=== PATIENT | female | born 1965 | race Caucasian/White ===

== ENCOUNTER 2018-03-01 17:39 | Emergency (ER) | payer MEDICARE, OTHER ==
[~2018-03-01] VITALS: Ht 162.6 cm; Wt 79.0 kg
[2018-03-01] MEDS ORDERED: HYDROcodone/acetaminophen 10/325mg tab PO ONE (20:05)
[2018-03-01 20:15] VITALS: BP 122/78
[2018-03-01] MEDS ORDERED: DOCU100C41 PO (20:51)
[2018-03-01] MEDS ORDERED: HYDR-565 PO (20:51)
== END 2018-03-01 21:08 | disposition home or self-care (01) ==
LOC: ER 17:39
DX: S62.521A Displaced fracture of distal phalanx of right thumb, initial encounter for closed fracture (principal); Z88.5 Allergy status to narcotic agent; Z79.899 Other long term (current) drug therapy; W01.0XXA Fall on same level from slipping, tripping and stumbling without subsequent striking against object, initial encounter; Y93.51 Activity, roller skating (inline) and skateboarding; Y92.89 Other specified places as the place of occurrence of the external cause; Y99.8 Other external cause status
CPT/HCPCS: 29130; 72220; 73130; 99284

== ENCOUNTER 2018-03-03 08:23 | Emergency (ER) | payer MEDICARE, OTHER ==
[~2018-03-03] VITALS: Ht 162.6 cm; Wt 81.8 kg
[~2018-03-03 08:23] MED LIST: DOCU100C41 PO; HYDR-565 PO
[2018-03-03 08:30] VITALS: BP 130/75
[2018-03-03] MEDS ORDERED: HYDR-565 PO (09:52)
== END 2018-03-03 10:30 | disposition home or self-care (01) ==
LOC: ER 08:24
DX: S62.521A Displaced fracture of distal phalanx of right thumb, initial encounter for closed fracture (principal); S30.0XXA Contusion of lower back and pelvis, initial encounter; G89.29 Other chronic pain; Z88.5 Allergy status to narcotic agent; Z79.899 Other long term (current) drug therapy; W01.0XXA Fall on same level from slipping, tripping and stumbling without subsequent striking against object, initial encounter; Y93.89 Activity, other specified; Y92.89 Other specified places as the place of occurrence of the external cause; Y99.8 Other external cause status
CPT/HCPCS: 29125; 73100; 73130; 73502; 99284

== ENCOUNTER 2018-03-14 11:03 | Outpatient (CLI) | payer MEDICARE, OTHER ==
[2018-03-14 11:13] VITALS: BP 125/56
== END 2018-03-14 11:43 | disposition home or self-care (01) ==
LOC: ORTHO 11:03
PROVIDERS: ATTEND Nurse Practitioner Family
DX: S62.524A Nondisplaced fracture of distal phalanx of right thumb, initial encounter for closed fracture (principal); S62.619A Displaced fracture of proximal phalanx of unspecified finger, initial encounter for closed fracture; Z88.5 Allergy status to narcotic agent; X58.XXXA Exposure to other specified factors, initial encounter; Y93.89 Activity, other specified; Y92.89 Other specified places as the place of occurrence of the external cause; Y99.8 Other external cause status
CPT/HCPCS: 99213

== ENCOUNTER 2019-03-26 13:00 | Emergency (ER) | payer MEDICARE, MEDICAID ==
[~2019-03-26] VITALS: Ht 162.6 cm; Wt 77.3 kg
[~2019-03-26 13:00] MED LIST changes: -HYDR-565 PO
[2019-03-26 13:35] LABS: CLARITY,URINE CLEAR (Clear); COLOR,URINE YELLOW (Yellow); GLUCOSE, URINE NEGATIVE (Neg); KETONES,URINE NEGATIVE (Neg); LEUKOCYTE ESTERASE ,URINE NEGATIVE (Neg); NITRITES, URINE NEGATIVE (Neg); OCCULT BLOOD,URINE NEGATIVE (Neg); PH,URINE 5.5 (4.8-8.0); PROTEIN,URINE NEGATIVE (Neg); UROBILINOGEN,URINE 0.2 E.U/dL (0.2-1.0)
[2019-03-26 13:37] LABS: UA COLLECTION TYPE CLN CATCH MIDSTREAM
[2019-03-26 13:39] LABS: BASOPHILS # (AUTO) 0.1 X10'3 (0-0.2); BASOPHILS % (AUTO) 0.8 % (0-1); EOSINOPHILS # (AUTO) 0.2 X10'3 (0-0.9); EOSINOPHILS % (AUTO) 2.8 % (0-6); HEMATOCRIT 44.5 % (35.0-45.0); HEMOGLOBIN 14.7 g/dl (12.0-16.0); LYMPHOCYTES # (AUTO) 2.9 X10'3 (1.1-4.8); LYMPHOCYTES % (AUTO) 35.9 % (21-51); MEAN CORPUSCULAR HEMOGLOBIN 30.4 PG (27.0-31.0); MEAN CORPUSCULAR VOLUME 92.1 FL (78-98); MONOCYTES # (AUTO) 0.6 X10'3 (0-0.9); MONOCYTES % (AUTO) 6.8 % (2-12); NEUTROPHILS # (AUTO) 4.4 X10'3 (1.8-7.7); NEUTROPHILS % (AUTO) 53.7 % (42-75); PLATELET COUNT 197 X10'3 (140-440); RED BLOOD COUNT 4.83 X10'6 (4.20-5.60); RED CELL DISTRIBUTION WIDTH 13.1 % (11.5-14.5); WHITE BLOOD COUNT 8.2 X10'3 (4.5-11.0)
[2019-03-26] MEDS ORDERED: famotidine 20mg tablet PO ONE (13:45)
[2019-03-26] MEDS ORDERED: acetaminophen 325mg tablet PO ONE (13:45)
[2019-03-26] MEDS ORDERED: normal saline 1000ML IV soln IVB ONE (13:45)
[2019-03-26] MEDS ORDERED: pantoprazole 40 MG vial IV ONE ×2 (13:45)
[2019-03-26] MEDS ORDERED: ondansetron/PF 4mg/2ml inj IV ONE (13:45)
[2019-03-26] MEDS ORDERED: ESOMEPRAZOLE 40 MG VIAL IV ONE (13:50)
[2019-03-26 13:55] LABS: ALANINE AMINOTRANSFERASE 20 U/L (12-78); ALBUMIN 4.5 G/DL (3.4-5.0); ALBUMIN/GLOBULIN RATIO 1.4 (1.1-1.5); ALKALINE PHOSPHATASE 67 IU/L (46-116); ANION GAP 10 (8-16); ASPARTATE AMINO TRANSFERASE 7 U/L (10-37); BILIRUBIN,TOTAL 0.2 MG/DL (0.1-1.0); BLOOD UREA NITROGEN 10 MG/DL (7-18); BUN/CREATININE RATIO 13.9 (6.6-38.0); CHLORIDE 107 MMOL/L (99-107); CREATININE 0.72 MG/DL (0.40-0.90); GLUCOSE 93 MG/DL (70-104); POTASSIUM 3.8 MMOL/L (3.5-5.1); SODIUM 143 MMOL/L (135-145); TOTAL CARBON DIOXIDE 26.4 MMOL/L (24-32); TOTAL PROTEIN 7.8 G/DL (6.4-8.2); eGFR 85 ML/MIN
[2019-03-26 13:57] LABS: TROPONIN I < 0.04 NG/ML (0.0-0.05)
[2019-03-26 14:14] VITALS: BP 120/49
[2019-03-26] MEDS ORDERED: ONDA8TAB6 PO (14:19)
[2019-03-26] MEDS ORDERED: ACET-2615 PO (14:19)
[2019-03-26] MEDS ORDERED: PANT-47 PO (14:19)
[2019-03-26] MEDS ORDERED: LOPE2CAP PO (14:19)
== END 2019-03-26 14:51 | disposition home or self-care (01) ==
LOC: ER 13:01
DX: K52.9 Noninfective gastroenteritis and colitis, unspecified (principal); G89.29 Other chronic pain; Z98.890 Other specified postprocedural states; Z88.5 Allergy status to narcotic agent; Z79.899 Other long term (current) drug therapy
CPT/HCPCS: 36415; 80053; 81003; 84484; 85025; 85610; 96361; 96374; 96375; 99283; J2405; J7030

== ENCOUNTER 2019-09-03 14:41 | Emergency (ER) | payer MEDICARE, MEDICAID ==
[~2019-09-03] VITALS: Ht 162.6 cm; Wt 77.3 kg
[~2019-09-03 14:41] MED LIST changes: +LOPE2CAP PO; +ONDA8TAB6 PO; +PANT-47 PO
[2019-09-03 15:09] VITALS: BP 125/82
[2019-09-03] MEDS ORDERED: ORPH100T2 PO (16:29)
[2019-09-03] MEDS ORDERED: ketorolac tromethamine 15mg/ml inj. IM ONE (16:30)
== END 2019-09-03 17:01 | disposition home or self-care (01) ==
LOC: ER 14:41
DX: M54.5 Low back pain (principal); G89.29 Other chronic pain; Z88.5 Allergy status to narcotic agent; Z79.899 Other long term (current) drug therapy
CPT/HCPCS: 96372; 99283; J1885

== ENCOUNTER 2020-01-01 09:06 | Emergency (ER) | payer MEDICAID, MEDICARE ==
[~2020-01-01] VITALS: Ht 162.6 cm; Wt 77.0 kg
[~2020-01-01 09:06] MED LIST changes: +ORPH100T2 PO
[2020-01-01] MEDS ORDERED: BUPIVAcaine/PF 7.5mg/ml (0.75%) 10ml vial IJ ONE (09:30)
[2020-01-01] MEDS ORDERED: LIDO700A32 TOP (09:35)
--- NOTE | 2020-01-01 10:18 | NUR ---
received pain injection. Laying in position of comfort. Given a warm blanket.
[2020-01-01 10:31] VITALS: BP 141/94
--- NOTE | 2020-01-01 10:32 | NUR ---
Pt states pain is now 4/10. standing up and walking to bathroom.
== END 2020-01-01 11:52 | disposition home or self-care (01) ==
LOC: ER 09:07
DX: S39.012A Strain of muscle, fascia and tendon of lower back, initial encounter (principal); G89.29 Other chronic pain; Z98.890 Other specified postprocedural states; Z88.5 Allergy status to narcotic agent; Z79.899 Other long term (current) drug therapy; X58.XXXA Exposure to other specified factors, initial encounter; Y93.89 Activity, other specified; Y92.89 Other specified places as the place of occurrence of the external cause; Y99.8 Other external cause status
CPT/HCPCS: 20552; 99284

== ENCOUNTER 2020-01-21 13:21 | Emergency (ER) | payer MEDICARE, MEDICAID ==
[~2020-01-21] VITALS: Ht 162.6 cm; Wt 90.0 kg
[~2020-01-21 13:21] MED LIST changes: +LIDO700A32 TOP
[2020-01-21 13:25] VITALS: BP 120/67
[2020-01-21] MEDS ORDERED: ketorolac tromethamine 15mg/ml inj. IM ONE (14:25)
== END 2020-01-21 14:47 | disposition home or self-care (01) ==
LOC: ER 13:22
DX: M54.5 Low back pain (principal); G89.29 Other chronic pain; Z88.5 Allergy status to narcotic agent; Z79.899 Other long term (current) drug therapy
CPT/HCPCS: 96372; 99283; J1885

== ENCOUNTER 2020-05-11 03:57 | Emergency (ER) | payer MEDICARE, MEDICAID ==
[~2020-05-11] VITALS: Ht 165.1 cm; Wt 81.8 kg
[2020-05-11] MEDS ORDERED: LORazepam 2 mg/ml vial IV ONE (04:05)
[2020-05-11 04:25] LABS: BASOPHILS # (AUTO) 0.1 X10'3 (0-0.2); BASOPHILS % (AUTO) 0.5 % (0-1); EOSINOPHILS # (AUTO) 0.1 X10'3 (0-0.9); EOSINOPHILS % (AUTO) 0.9 % (0-6); HEMATOCRIT 37.6 % (35.0-45.0); HEMOGLOBIN 12.4 g/dl (12.0-16.0); LYMPHOCYTES # (AUTO) 1.6 X10'3 (1.1-4.8); LYMPHOCYTES % (AUTO) 12.8 % (21-51); MEAN CORPUSCULAR HEMOGLOBIN 30.5 PG (27.0-31.0); MEAN CORPUSCULAR HGB CONC 32.9 g/dL (33.0-36.5); MEAN CORPUSCULAR VOLUME 92.9 FL (78-98); MEAN PLATELET VOLUME 9.4 FL (7.4-10.4); MONOCYTES # (AUTO) 0.7 X10'3 (0-0.9); MONOCYTES % (AUTO) 5.2 % (2-12); NEUTROPHILS # (AUTO) 10.3 X10'3 (1.8-7.7); NEUTROPHILS % (AUTO) 80.6 % (42-75); PLATELET COUNT 206 X10'3 (140-440); RED BLOOD COUNT 4.05 X10'6 (4.20-5.60); RED CELL DISTRIBUTION WIDTH 14.8 % (11.5-14.5); WHITE BLOOD COUNT 12.8 X10'3 (4.5-11.0)
[2020-05-11 04:34] LABS: ALANINE AMINOTRANSFERASE 26 U/L (12-78); ALBUMIN 3.8 G/DL (3.4-5.0); ALBUMIN/GLOBULIN RATIO 1.4 (1.1-1.5); ALKALINE PHOSPHATASE 46 IU/L (46-116); ANION GAP 9 (8-16); ASPARTATE AMINO TRANSFERASE 8 U/L (10-37); BILIRUBIN,TOTAL 0.3 MG/DL (0.1-1.0); BLOOD UREA NITROGEN 19 MG/DL (7-18); BUN/CREATININE RATIO 19.2 (6.6-38.0); CALCIUM 8.5 MG/DL (8.5-10.1); CHLORIDE 103 MMOL/L (99-107); CREATININE 0.99 MG/DL (0.40-0.90); GLUCOSE 242 MG/DL (70-104); POTASSIUM 3.5 MMOL/L (3.5-5.1); SODIUM 137 MMOL/L (135-145); TOTAL CARBON DIOXIDE 24.9 MMOL/L (24-32); TOTAL PROTEIN 6.5 G/DL (6.4-8.2); eGFR 59 ML/MIN
[2020-05-11] MEDS ORDERED: LORA-269 PO (05:04)
[2020-05-11 05:19] VITALS: BP 101/64
== END 2020-05-11 05:20 | disposition home or self-care (01) ==
LOC: ER 03:57
DX: R07.89 Other chest pain (principal); F41.9 Anxiety disorder, unspecified; R42 Dizziness and giddiness; G89.29 Other chronic pain; R50.9 Fever, unspecified; R06.02 Shortness of breath; Z88.5 Allergy status to narcotic agent; Z79.899 Other long term (current) drug therapy
CPT/HCPCS: 36415; 71045; 80053; 83880; 84484; 85025; 93005; 96374; 99285; J2060

== ENCOUNTER 2020-11-10 03:16 | Inpatient (IN) | payer MEDICARE, MEDICAID ==
[~2020-11-10] VITALS: Ht 162.6 cm; Wt 75.0 kg
[~2020-11-10 03:16] MED LIST changes: +LORA-269 PO
[2020-11-10] MEDS ORDERED: normal saline 1000ml 1,000 ML IV ONE (03:45)
[2020-11-10] MEDS ORDERED: aspirin 81mg tab.chew PO ONE (03:45)
[2020-11-10] MEDS ORDERED: ondansetron/PF 4mg/2ml inj IV ONE (03:45)
[2020-11-10 03:53] LABS: BASOPHILS # (AUTO) 0.1 X10'3 (0-0.2); BASOPHILS % (AUTO) 0.7 % (0-1); EOSINOPHILS # (AUTO) 0.2 X10'3 (0-0.9); EOSINOPHILS % (AUTO) 2.2 % (0-6); HEMATOCRIT 45.8 % (35.0-45.0); HEMOGLOBIN 15.4 g/dl (12.0-16.0); MEAN CORPUSCULAR HEMOGLOBIN 30.4 PG (27.0-31.0); MEAN CORPUSCULAR HGB CONC 33.6 g/dL (33.0-36.5); MEAN CORPUSCULAR VOLUME 90.5 FL (78-98); MEAN PLATELET VOLUME 10.3 FL (7.4-10.4); MONOCYTES % (AUTO) 11.1 % (2-12); PLATELET COUNT 242 X10'3 (140-440); RED BLOOD COUNT 5.06 X10'6 (4.20-5.60); RED CELL DISTRIBUTION WIDTH 13.2 % (11.5-14.5); WHITE BLOOD COUNT 9.3 X10'3 (4.5-11.0)
[2020-11-10 04:06] LABS: ALANINE AMINOTRANSFERASE 26 U/L (12-78); ALBUMIN 4.2 G/DL (3.4-5.0); ALBUMIN/GLOBULIN RATIO 1.3 (1.1-1.5); ALKALINE PHOSPHATASE 80 IU/L (46-116); ANION GAP 14 (8-16); ASPARTATE AMINO TRANSFERASE 15 U/L (10-37); BILIRUBIN,TOTAL 0.4 MG/DL (0.1-1.0); BLOOD UREA NITROGEN 8 MG/DL (7-18); BUN/CREATININE RATIO 9.5 (6.6-38.0); CALCIUM 9.2 MG/DL (8.5-10.1); CHLORIDE 100 MMOL/L (99-107); CREATININE 0.84 MG/DL (0.40-0.90); GLUCOSE 179 MG/DL (70-104); SODIUM 143 MMOL/L (135-145); TOTAL CARBON DIOXIDE 28.6 MMOL/L (24-32); TOTAL PROTEIN 7.4 G/DL (6.4-8.2); eGFR 71 ML/MIN
[2020-11-10 04:11] LABS: POTASSIUM 1.9 MMOL/L (3.5-5.1)
[2020-11-10] MEDS ORDERED: magnesium 2GM in 50ml NS 50 ML IV ONE (04:20)
[2020-11-10 04:28] LABS: MAGNESIUM 1.7 MG/DL (1.5-2.4)
[2020-11-10] MEDS ORDERED: potassium Cl 20 mEq SR tablet PO STA (04:33)
[2020-11-10] MEDS: potassium Cl 10 mEq/100mL bag IV SCH ×5 (04:36→08:20)
[2020-11-10] MEDS ORDERED: CYCL5TAB PO (04:42)
[2020-11-10] MEDS ORDERED: METO-395 PO (04:42)
[2020-11-10] MEDS ORDERED: DULO60CA65 PO (04:42)
[2020-11-10] MEDS ORDERED: ATOR10TA70 PO (04:42)
[2020-11-10] MEDS ORDERED: HYDR25TA4 PO (04:42)
[2020-11-10] MEDS ORDERED: PREG150C46 PO (04:42)
[2020-11-10] MEDS ORDERED: potassium Cl 20 mEq SR tablet PO PRN (05:00)
[2020-11-10] MEDS ORDERED: potassium Cl 40MEQ/1/2NS 520ml 520 ML IV PRN ×2 (05:00)
[2020-11-10] MEDS ORDERED: ondansetron/PF 4mg/2ml inj IV PRN (05:00)
[2020-11-10] MEDS ORDERED: acetaminophen 325mg tablet PO PRN (05:00)
[2020-11-10] MEDS ORDERED: magnesium hydroxide 30ml (MOM) UD suspension PO PRN (05:00)
[2020-11-10] MEDS ORDERED: mag hydrox/Alum hydrox/simeth 30ml oral suspension PO PRN (05:00)
[2020-11-10] MEDS ORDERED: METH-604 PO (05:04)
[2020-11-10] MEDS: pregabalin 75mg capsule PO SCH ×2 (08:06→19:28)
[2020-11-10] MEDS: heparin, porcine 5000 units/ml vial SQ SCH ×2 (08:06→19:30)
[2020-11-10] MEDS: atorvastatin 10mg tablet PO SCH (08:07)
[2020-11-10] MEDS: cyclobenzaprine 10mg tablet PO SCH ×3 (08:07→20:43)
[2020-11-10] MEDS: metoprolol succinate 25mg (24-HOUR) SR. Tablet PO SCH (08:07)
[2020-11-10] MEDS: K and/or MAG REPLACEMENT MC SCH ×2 (08:08→19:23)
[2020-11-10] MEDS: duloxetine 30mg CAPSULE.DR PO SCH (08:08)
[2020-11-10] MEDS: methimazole 5mg tablet PO SCH (08:10)
[2020-11-10 09:18] LABS: BASOPHILS # (AUTO) 0.1 X10'3 (0-0.2); BASOPHILS % (AUTO) 0.6 % (0-1); EOSINOPHILS # (AUTO) 0.1 X10'3 (0-0.9); EOSINOPHILS % (AUTO) 0.9 % (0-6); HEMATOCRIT 40.7 % (35.0-45.0); HEMOGLOBIN 13.7 g/dl (12.0-16.0); LYMPHOCYTES # (AUTO) 2.5 X10'3 (1.1-4.8); LYMPHOCYTES % (AUTO) 26.3 % (21-51); MEAN CORPUSCULAR HEMOGLOBIN 30.4 PG (27.0-31.0); MEAN CORPUSCULAR HGB CONC 33.8 g/dL (33.0-36.5); MEAN PLATELET VOLUME 9.9 FL (7.4-10.4); MONOCYTES # (AUTO) 0.7 X10'3 (0-0.9); MONOCYTES % (AUTO) 7.7 % (2-12); NEUTROPHILS # (AUTO) 6.1 X10'3 (1.8-7.7); NEUTROPHILS % (AUTO) 64.5 % (42-75); PLATELET COUNT 225 X10'3 (140-440); RED BLOOD COUNT 4.52 X10'6 (4.20-5.60); RED CELL DISTRIBUTION WIDTH 12.8 % (11.5-14.5); WHITE BLOOD COUNT 9.4 X10'3 (4.5-11.0)
[2020-11-10 09:33] LABS: ALANINE AMINOTRANSFERASE 20 U/L (12-78); ALBUMIN 3.5 G/DL (3.4-5.0); ALBUMIN/GLOBULIN RATIO 1.2 (1.1-1.5); ALKALINE PHOSPHATASE 66 IU/L (46-116); ANION GAP 7 (8-16); ASPARTATE AMINO TRANSFERASE 14 U/L (10-37); BILIRUBIN,TOTAL 0.3 MG/DL (0.1-1.0); BLOOD UREA NITROGEN 6 MG/DL (7-18); BUN/CREATININE RATIO 8.1 (6.6-38.0); CALCIUM 8.5 MG/DL (8.5-10.1); CHLORIDE 105 MMOL/L (99-107); CREATININE 0.74 MG/DL (0.40-0.90); GLUCOSE 159 MG/DL (70-104); SODIUM 142 MMOL/L (135-145); TOTAL CARBON DIOXIDE 30.1 MMOL/L (24-32); TOTAL PROTEIN 6.4 G/DL (6.4-8.2); eGFR 82 ML/MIN
[2020-11-10 10:15] VITALS: BP 129/74
--- NOTE | 2020-11-10 10:15 | NUR ---
Patient oriented to room and call light, vitals stable, patient resting comfortably. A&O x4 appropriate
[2020-11-10 12:19] LABS: MAGNESIUM 2.4 MG/DL (1.5-2.4)
[2020-11-10] MEDS: potassium Cl 20 mEq SR tablet PO PRN ×2 (14:36→19:30)
[2020-11-10] MEDS: potassium Cl 20mEq in D5-NS 1,000 ML IV SCH ×2 (14:37→15:05)
[2020-11-10 15:00] VITALS: BP 106/63
[2020-11-10 17:51] VITALS: BP 106/63
[2020-11-10 18:00] VITALS: BP 114/71
--- NOTE | 2020-11-10 18:39 | NUR ---
Problems reprioritized. Patient report given, questions answered & plan of care reviewed with Jeannette CAMACHO.
--- NOTE | 2020-11-10 18:40 | NUR ---
Patient in room PCU 3024. I have received report from Davi CAMACHO and had the opportunity to ask questions and assume patient care.
[2020-11-10 18:57] LABS: COLOR,URINE YELLOW (Yellow); GLUCOSE, URINE NEGATIVE (Neg); KETONES,URINE NEGATIVE (Neg); LEUKOCYTE ESTERASE ,URINE SMALL (Neg); NITRITES, URINE NEGATIVE (Neg); OCCULT BLOOD,URINE NEGATIVE (Neg); PH,URINE 6.5 (4.8-8.0); PROTEIN,URINE NEGATIVE (Neg); UROBILINOGEN,URINE 0.2 E.U/dL (0.2-1.0)
[2020-11-10 19:00] VITALS: BP 114/71
[2020-11-10 19:10] LABS: UA COLLECTION TYPE CLN CATCH MIDSTREAM
[2020-11-10 19:11] LABS: CLARITY,URINE SLIGHTLY CLOUDY (Clear); RBC,URINE NONE SEEN /HPF (0-2)
[2020-11-10 19:12] LABS: BACTERIA,URINE FEW /HPF (Neg); SQUAMOUS EPITHELIAL CELL,UR FEW /LPF (FEW)
[2020-11-10 22:00] VITALS: BP 96/65
[2020-11-11] MEDS: potassium Cl 20mEq in D5-NS 1,000 ML IV SCH ×3 (00:38→21:10)
[2020-11-11] MEDS: potassium Cl 20 mEq SR tablet PO PRN (00:38)
[2020-11-11 02:00] VITALS: BP 97/52
[2020-11-11 06:00] VITALS: BP 92/58
[2020-11-11 06:16] LABS: HEMATOCRIT 35.8 % (35.0-45.0); MEAN CORPUSCULAR HEMOGLOBIN 30.8 PG (27.0-31.0); MEAN CORPUSCULAR HGB CONC 33.5 g/dL (33.0-36.5); MEAN CORPUSCULAR VOLUME 91.8 FL (78-98); MEAN PLATELET VOLUME 10.1 FL (7.4-10.4); PLATELET COUNT 183 X10'3 (140-440); RED CELL DISTRIBUTION WIDTH 13.4 % (11.5-14.5); WHITE BLOOD COUNT 5.6 X10'3 (4.5-11.0)
[2020-11-11 06:22] LABS: ALANINE AMINOTRANSFERASE 20 U/L (12-78); ALBUMIN/GLOBULIN RATIO 1.2 (1.1-1.5); ALKALINE PHOSPHATASE 51 IU/L (46-116); ANION GAP 5 (8-16); ASPARTATE AMINO TRANSFERASE 15 U/L (10-37); BILIRUBIN,TOTAL 0.2 MG/DL (0.1-1.0); BLOOD UREA NITROGEN 10 MG/DL (7-18); BUN/CREATININE RATIO 16.1 (6.6-38.0); CALCIUM 8.3 MG/DL (8.5-10.1); CHLORIDE 112 MMOL/L (99-107); CREATININE 0.62 MG/DL (0.40-0.90); GLUCOSE 109 MG/DL (70-104); POTASSIUM 4.8 MMOL/L (3.5-5.1); SODIUM 144 MMOL/L (135-145); TOTAL CARBON DIOXIDE 26.9 MMOL/L (24-32); TOTAL PROTEIN 5.5 G/DL (6.4-8.2); eGFR > 90 ML/MIN
--- NOTE | 2020-11-11 06:39 | NUR ---
Problems reprioritized. Patient report given, questions answered & plan of care reviewed with Claire CAMACHO.
[2020-11-11 06:51] LABS: LARGE PLATELETS FEW; PLATELET ESTIMATE NORMAL; TOTAL CELLS COUNTED 100
[2020-11-11] MEDS: duloxetine 30mg CAPSULE.DR PO SCH (07:05)
[2020-11-11] MEDS: methimazole 5mg tablet PO SCH (07:06)
[2020-11-11] MEDS: atorvastatin 10mg tablet PO SCH (07:06)
[2020-11-11] MEDS: heparin, porcine 5000 units/ml vial SQ SCH ×2 (07:07→21:05)
[2020-11-11] MEDS: pregabalin 75mg capsule PO SCH ×2 (07:07→21:05)
[2020-11-11] MEDS: K and/or MAG REPLACEMENT MC SCH ×2 (07:11→20:00)
[2020-11-11] MEDS: metoprolol succinate 25mg (24-HOUR) SR. Tablet PO SCH ×2 (08:00→20:00)
[2020-11-11] MEDS ORDERED: acetaminophen 325mg tablet PO PRN (09:45)
[2020-11-11] MEDS: cyclobenzaprine 10mg tablet PO SCH ×2 (09:58→21:07)
[2020-11-11] MEDS ORDERED: metoprolol succinate 25mg (24-HOUR) SR. Tablet PO ONE (10:20)
[2020-11-11 11:00] VITALS: BP 108/68
--- NOTE | 2020-11-11 16:43 | NUR ---
Problems reprioritized. Patient report given, questions answered & plan of care reviewed with Cherry CAMACHO.
--- NOTE | 2020-11-11 16:54 | NUR ---
Patient in room PCU 3024. I have received report from JANICE Rangel and had the opportunity to ask questions and assume patient care.
[2020-11-11 18:00] VITALS: BP 101/63
--- NOTE | 2020-11-11 18:26 | NUR ---
Problems reprioritized. Patient report given, questions answered & plan of care reviewed with JANICE Keenan.
[2020-11-12 02:00] VITALS: BP 95/62
[2020-11-12] MEDS: potassium Cl 20mEq in D5-NS 1,000 ML IV SCH ×2 (02:49→05:17)
--- NOTE | 2020-11-12 06:18 | NUR ---
Patient in room PCU 3024. I have received report from JANICE Keenan and had the opportunity to ask questions and assume patient care.
--- NOTE | 2020-11-12 06:21 | NUR ---
Report given to JANICE Carey.
[2020-11-12 06:26] LABS: BASOPHILS % (AUTO) 0.7 % (0-1); EOSINOPHILS # (AUTO) 0.2 X10'3 (0-0.9); HEMATOCRIT 33.8 % (35.0-45.0); HEMOGLOBIN 11.2 g/dl (12.0-16.0); LYMPHOCYTES # (AUTO) 2.8 X10'3 (1.1-4.8); LYMPHOCYTES % (AUTO) 45.6 % (21-51); MEAN CORPUSCULAR HEMOGLOBIN 30.5 PG (27.0-31.0); MEAN CORPUSCULAR HGB CONC 33.1 g/dL (33.0-36.5); MEAN CORPUSCULAR VOLUME 92.2 FL (78-98); MEAN PLATELET VOLUME 10.1 FL (7.4-10.4); MONOCYTES # (AUTO) 0.6 X10'3 (0-0.9); NEUTROPHILS # (AUTO) 2.6 X10'3 (1.8-7.7); NEUTROPHILS % (AUTO) 41.7 % (42-75); PLATELET COUNT 163 X10'3 (140-440); RED BLOOD COUNT 3.67 X10'6 (4.20-5.60); RED CELL DISTRIBUTION WIDTH 13.2 % (11.5-14.5); WHITE BLOOD COUNT 6.2 X10'3 (4.5-11.0)
[2020-11-12 06:46] LABS: ALANINE AMINOTRANSFERASE 25 U/L (12-78); ALBUMIN/GLOBULIN RATIO 1.3 (1.1-1.5); ALKALINE PHOSPHATASE 50 IU/L (46-116); ANION GAP 6 (8-16); ASPARTATE AMINO TRANSFERASE 15 U/L (10-37); BILIRUBIN,TOTAL 0.2 MG/DL (0.1-1.0); BLOOD UREA NITROGEN 10 MG/DL (7-18); BUN/CREATININE RATIO 16.7 (6.6-38.0); CALCIUM 8.2 MG/DL (8.5-10.1); CHLORIDE 112 MMOL/L (99-107); GLUCOSE 98 MG/DL (70-104); POTASSIUM 4.4 MMOL/L (3.5-5.1); SODIUM 145 MMOL/L (135-145); TOTAL CARBON DIOXIDE 26.6 MMOL/L (24-32); TOTAL PROTEIN 5.3 G/DL (6.4-8.2); eGFR > 90 ML/MIN
[2020-11-12] MEDS: pregabalin 75mg capsule PO SCH (07:30)
[2020-11-12] MEDS: duloxetine 30mg CAPSULE.DR PO SCH (07:30)
[2020-11-12] MEDS: heparin, porcine 5000 units/ml vial SQ SCH (07:30)
[2020-11-12] MEDS: atorvastatin 10mg tablet PO SCH (07:31)
[2020-11-12] MEDS: cyclobenzaprine 10mg tablet PO SCH (07:31)
[2020-11-12] MEDS: metoprolol succinate 25mg (24-HOUR) SR. Tablet PO SCH (07:31)
[2020-11-12] MEDS: K and/or MAG REPLACEMENT MC SCH (08:00)
--- NOTE | 2020-11-12 13:30 | NUR ---
Patient stable for discharge per provider orders. PIV removed intact and awake overnight monitor removed and returned, with leads, to telemetry office. All belongings gathered and sent home with patient. Patient ambulated to wheelchair and wheeled down to front entrance, where he entered his daughter's private vehicle and left, in stable condition. Patient was given thorough discharge instructions and the opportunity to ask questions. All questions answered with patient indicating that he understood. Addendum: 11/12/20 at 1334 by Cherry Dumont RN Above note incorrect in that this female patient left the facility in her mother's private vehicle. She understood all discharge instructions and indicated understanding.
--- NOTE | 2020-11-13 10:57 | NUR ---
CASE MANAGEMENT DISCHARGE FOLLOW UP: T/c to pt's listed number, received automated message "Call cannot be completed at this time. Please try again later." Will attempt to call pt again later this afternoon. Addendum: 11/13/20 at 1421 by Yohana Mcdaniel RN [id number] 2nd attempt t/c, same message. Unable to contact patient.
== END 2020-11-12 12:56 | disposition home or self-care (01) | DRG 641 ==
LOC: ER 03:16 → ED HOLD 04:57 → PCU 3S 10:11
PROVIDERS: ADMIT Internal Medicine; ATTEND Family Medicine
DX: E87.6 Hypokalemia (principal); G90.50 Complex regional pain syndrome I, unspecified; E83.42 Hypomagnesemia; E87.8 Other disorders of electrolyte and fluid balance, not elsewhere classified; E03.9 Hypothyroidism, unspecified; E05.90 Thyrotoxicosis, unspecified without thyrotoxic crisis or storm; Z88.8 Allergy status to other drugs, medicaments and biological substances; I10 Essential (primary) hypertension; E78.00 Pure hypercholesterolemia, unspecified; Z86.16 Personal history of COVID-19; R94.31 Abnormal electrocardiogram [ECG] [EKG]; M54.9 Dorsalgia, unspecified
CPT/HCPCS: 36415; 71045; 80053; 81001; 83735; 84439; 84443; 84484; 85007; 85025; 87081; 87088; 93005; 96374; 99285; G0378; J1644; J2405; J3475; J3480; J7030

== ENCOUNTER 2021-10-17 20:06 | Emergency (ER) | payer MEDICARE, MEDICAID ==
[~2021-10-17 20:06] MED LIST changes: +ATOR10TA70 PO; +CYCL5TAB PO; -DOCU100C41 PO; +DULO60CA65 PO; -LIDO700A32 TOP; -LOPE2CAP PO; -LORA-269 PO; +METO-395 PO; -ONDA8TAB6 PO; -ORPH100T2 PO; -PANT-47 PO; +PREG150C46 PO
== END 2021-10-17 23:00 | disposition left against medical advice (07) ==
LOC: ER 20:07
DX: R51.9 Headache, unspecified (principal); Z53.21 Procedure and treatment not carried out due to patient leaving prior to being seen by health care provider

== ENCOUNTER 2021-11-30 11:55 | Inpatient (IN) | payer MEDICARE, MEDICAID ==
[~2021-11-30] VITALS: Ht 162.6 cm; Wt 81.8 kg
[~2021-11-30 11:55] MED LIST changes: -ATOR10TA70 PO; +CIPR-202 PO; -CYCL5TAB PO; -DULO60CA65 PO; +LACT1CAP55 PO; -METO-395 PO; +PANT40TA54 PO; -PREG150C46 PO
[2021-11-30 12:58] LABS: BASOPHILS % (AUTO) 0.4 % (0-1); EOSINOPHILS # (AUTO) 0.1 X10'3 (0-0.9); EOSINOPHILS % (AUTO) 1.3 % (0-6); HEMATOCRIT 42.4 % (35.0-45.0); HEMOGLOBIN 14.2 g/dl (12.0-16.0); LYMPHOCYTES # (AUTO) 1.5 X10'3 (1.1-4.8); LYMPHOCYTES % (AUTO) 14.7 % (21-51); MEAN CORPUSCULAR HEMOGLOBIN 29.8 PG (27.0-31.0); MEAN CORPUSCULAR HGB CONC 33.4 g/dL (33.0-36.5); MEAN CORPUSCULAR VOLUME 89.2 FL (78-98); MEAN PLATELET VOLUME 10.3 FL (7.4-10.4); MONOCYTES % (AUTO) 9.8 % (2-12); NEUTROPHILS # (AUTO) 7.6 X10'3 (1.8-7.7); NEUTROPHILS % (AUTO) 73.8 % (42-75); PLATELET COUNT 215 X10'3 (140-440); RED BLOOD COUNT 4.75 X10'6 (4.20-5.60); WHITE BLOOD COUNT 10.2 X10'3 (4.5-11.0)
[2021-11-30 13:00] LABS: ALANINE AMINOTRANSFERASE 22 U/L (12-78); ALBUMIN 3.9 G/DL (3.4-5.0); ALBUMIN/GLOBULIN RATIO 1.2 (1.1-1.5); ALKALINE PHOSPHATASE 56 IU/L (46-116); ANION GAP 9 (8-16); ASPARTATE AMINO TRANSFERASE 14 U/L (10-37); BILIRUBIN,TOTAL 0.5 MG/DL (0.1-1.0); BLOOD UREA NITROGEN 6 MG/DL (7-18); BUN/CREATININE RATIO 8.5 (6.6-38.0); CALCIUM 8.7 MG/DL (8.5-10.1); CHLORIDE 107 MMOL/L (99-107); CREATININE 0.71 MG/DL (0.40-0.90); GLUCOSE 116 MG/DL (70-104); LIPASE 83 U/L (73-393); POTASSIUM 3.5 MMOL/L (3.5-5.1); SODIUM 140 MMOL/L (135-145); TOTAL CARBON DIOXIDE 24.1 MMOL/L (24-32); TOTAL PROTEIN 7.2 G/DL (6.4-8.2); eGFR 85 ML/MIN
[2021-11-30 13:10] LABS: CLARITY,URINE CLEAR (Clear); COLOR,URINE YELLOW (Yellow); GLUCOSE, URINE NEGATIVE (Neg); KETONES,URINE TRACE mg/dl (Neg); LEUKOCYTE ESTERASE ,URINE NEGATIVE (Neg); NITRITES, URINE NEGATIVE (Neg); OCCULT BLOOD,URINE TRACE-INTACT (Neg); PROTEIN,URINE NEGATIVE (Neg); UROBILINOGEN,URINE 0.2 E.U/dL (0.2-1.0)
[2021-11-30 13:11] LABS: URINE HCG NEGATIVE (NEG)
[2021-11-30 13:37] LABS: UA COLLECTION TYPE CLN CATCH MIDSTREAM
[2021-11-30 13:44] LABS: BACTERIA,URINE NONE SEEN /HPF (Neg); RBC,URINE 0-2 /HPF (0-2); SQUAMOUS EPITHELIAL CELL,UR FEW /LPF (FEW); WBC,URINE NONE SEEN /HPF (0-4)
[2021-11-30] MEDS ORDERED: normal saline 1000ML IV soln IVB ONE ×3 (13:55→14:25)
[2021-11-30] MEDS ORDERED: morphine 4 MG/ML inj SYRINge IV ONE ×2 (14:25→17:35)
[2021-11-30] MEDS ORDERED: metoclopramide 5 mg/ml inj IV ONE (14:25)
[2021-11-30] MEDS ORDERED: diphenhydrAMINE 50 mg/ml inj IV ONE (14:25)
[2021-11-30] MEDS ORDERED: piperacillin/tazo 3.375gm/50ml 50 ML IV ONE (16:10)
[2021-11-30] MEDS ORDERED: LACT1CAP55 PO (17:35)
[2021-11-30] MEDS ORDERED: PANT-47 PO (17:35)
[2021-11-30] MEDS ORDERED: PREG150C46 PO (17:35)
[2021-11-30] MEDS ORDERED: CYCL5TAB PO (17:35)
[2021-11-30] MEDS ORDERED: MULT-1085 PO (17:35)
[2021-11-30] MEDS ORDERED: acetaminophen 325mg tablet PO PRN ×2 (18:40)
[2021-11-30] MEDS ORDERED: diphenhydrAMINE 25mg capsule PO PRN (18:40)
[2021-11-30] MEDS ORDERED: magnesium 2GM in 50ml NS 50 ML IV PRN (18:40)
[2021-11-30] MEDS ORDERED: HYDROcodone/acetaminophen 5mg/325mg tablet PO PRN (18:40)
[2021-11-30] MEDS ORDERED: potassium Cl 20 mEq SR tablet PO PRN ×2 (18:40)
[2021-11-30] MEDS ORDERED: magnesium hydroxide 30ml (MOM) UD suspension PO PRN (18:40)
[2021-11-30] MEDS ORDERED: mag hydrox/Alum hydrox/simeth 30ml oral suspension PO PRN (18:40)
[2021-11-30] MEDS ORDERED: magnesium Cl slow-release 64mg tablet PO PRN (18:40)
[2021-11-30] MEDS ORDERED: potassium CL 10mEq/100ml bag 100 ML IV PRN (18:40)
[2021-11-30] MEDS ORDERED: magnesium 4gm in 100ml NS 100 ML IV PRN (18:40)
[2021-11-30] MEDS ORDERED: morphine 2 MG/ML inj. syringe IV PRN (18:40)
[2021-11-30] MEDS: normal saline 1000ml 1,000 ML IV SCH (18:52)
[2021-11-30] MEDS: K and/or MAG REPLACEMENT MC SCH (19:49)
[2021-11-30] MEDS: docusate sod 100mg capsule PO SCH (20:00)
[2021-11-30] MEDS: heparin, porcine 5000 units/ml vial SQ SCH (20:06)
--- NOTE | 2021-11-30 20:40 | NUR ---
Received report from Eric CAMACHO in the ER. Pt arrived on the unit via wheelchair and was able to ambulate with minimal assistance to her hospital bed. Pt was on room air, saline locked, VSS and still in her personal clothing. Pt had no signs of distress, will continue to monitor.
[2021-11-30] MEDS: cyclobenzaprine 10mg tablet PO SCH (20:41)
[2021-11-30] MEDS: pregabalin 75mg capsule PO SCH (20:42)
[2021-11-30] MEDS: morphine 2 MG/ML inj. syringe IV PRN (21:22)
[2021-11-30 21:40] VITALS: BP 152/89
[2021-11-30 23:31] VITALS: BP 113/61
[2021-11-30] MEDS: piperacillin/tazo 3.375gm/50ml 50 ML IV SCH (23:58)
[2021-12-01] MEDS: morphine 2 MG/ML inj. syringe IV PRN ×5 (03:03→23:51)
[2021-12-01] MEDS: normal saline 1000ml 1,000 ML IV SCH ×3 (04:40→14:17)
[2021-12-01] MEDS: HYDROcodone/acetaminophen 10/325mg tab PO PRN ×2 (05:38→09:57)
[2021-12-01 06:08] LABS: BASOPHILS % (AUTO) 0.7 % (0-1); EOSINOPHILS # (AUTO) 0.3 X10'3 (0-0.9); EOSINOPHILS % (AUTO) 5.5 % (0-6); HEMOGLOBIN 11.7 g/dl (12.0-16.0); LYMPHOCYTES # (AUTO) 1.7 X10'3 (1.1-4.8); LYMPHOCYTES % (AUTO) 32.5 % (21-51); MEAN CORPUSCULAR HEMOGLOBIN 30.5 PG (27.0-31.0); MEAN CORPUSCULAR HGB CONC 33.5 g/dL (33.0-36.5); MEAN CORPUSCULAR VOLUME 91.1 FL (78-98); MONOCYTES # (AUTO) 0.6 X10'3 (0-0.9); MONOCYTES % (AUTO) 11.8 % (2-12); NEUTROPHILS # (AUTO) 2.6 X10'3 (1.8-7.7); NEUTROPHILS % (AUTO) 49.5 % (42-75); PLATELET COUNT 175 X10'3 (140-440); RED BLOOD COUNT 3.84 X10'6 (4.20-5.60); RED CELL DISTRIBUTION WIDTH 12.9 % (11.5-14.5); WHITE BLOOD COUNT 5.2 X10'3 (4.5-11.0)
[2021-12-01 06:26] LABS: ALANINE AMINOTRANSFERASE 19 U/L (12-78); ALBUMIN 2.9 G/DL (3.4-5.0); ALBUMIN/GLOBULIN RATIO 1.1 (1.1-1.5); ALKALINE PHOSPHATASE 39 IU/L (46-116); ANION GAP 10 (8-16); ASPARTATE AMINO TRANSFERASE 11 U/L (10-37); BILIRUBIN,TOTAL 0.4 MG/DL (0.1-1.0); BLOOD UREA NITROGEN 4 MG/DL (7-18); BUN/CREATININE RATIO 7.1 (6.6-38.0); CHLORIDE 109 MMOL/L (99-107); CREATININE 0.56 MG/DL (0.40-0.90); GLUCOSE 89 MG/DL (70-104); PHOSPHORUS 2.8 MG/DL (2.3-4.5); POTASSIUM 3.5 MMOL/L (3.5-5.1); SODIUM 142 MMOL/L (135-145); TOTAL CARBON DIOXIDE 23.4 MMOL/L (24-32); TOTAL PROTEIN 5.6 G/DL (6.4-8.2); eGFR > 90 ML/MIN
--- NOTE | 2021-12-01 06:35 | NUR ---
Problems reprioritized. Patient report given, questions answered & plan of care reviewed with Sandeep CAMACHO.
--- NOTE | 2021-12-01 06:37 | NUR ---
Patient in room [facility] 351. I have received report from Nydia CAMACHO and had the opportunity to ask questions and assume patient care.
[2021-12-01 07:00] VITALS: BP 104/66
[2021-12-01] MEDS: docusate sod 100mg capsule PO SCH ×2 (08:00→20:00)
[2021-12-01] MEDS: K and/or MAG REPLACEMENT MC SCH ×2 (08:00→20:00)
[2021-12-01] MEDS: ondansetron/PF 4mg/2ml inj IV PRN ×2 (09:47→23:59)
[2021-12-01] MEDS: piperacillin/tazo 3.375gm/50ml 50 ML IV SCH ×3 (09:47→23:52)
[2021-12-01] MEDS: pantoprazole 40mg Tablet.DR PO SCH (09:53)
[2021-12-01] MEDS: multivitamins, therapeutics tablet PO SCH (09:53)
[2021-12-01] MEDS: cyclobenzaprine 10mg tablet PO SCH ×3 (09:53→20:16)
[2021-12-01] MEDS: lactobacillus rhamnosus 10,000 MMU CELLS/CAPSULE PO SCH (09:53)
[2021-12-01] MEDS: heparin, porcine 5000 units/ml vial SQ SCH (09:54)
[2021-12-01] MEDS: pregabalin 75mg capsule PO SCH ×3 (09:57→20:19)
[2021-12-01 11:32] LABS: OCCULT BLOOD STOOL POSITIVE (Neg)
[2021-12-01 11:40] LABS: C DIFF SPECIMEN=DIARRHEA? ACCEPTABLE; C DIFFICILE TOXINS A&B NEGATIVE (Neg)
[2021-12-01 12:00] VITALS: BP 104/76
[2021-12-01] MEDS ORDERED: PEG 3350/Na sulf,bicarb,Cl/KCl oral sol 4 liter bottle PO ONE (18:50)
[2021-12-01 19:53] VITALS: BP 154/92
[2021-12-02] VITALS (9 sets, daily range): BP systolic 111–139; BP diastolic 66–93
[2021-12-02] MEDS: normal saline 1000ml 1,000 ML IV SCH ×3 (00:26→23:12)
[2021-12-02] MEDS: morphine 2 MG/ML inj. syringe IV PRN ×3 (05:33→20:05)
--- NOTE | 2021-12-02 06:06 | NUR ---
Problems reprioritized. Patient report given, questions answered & plan of care reviewed with Sandeep CAMACHO.
[2021-12-02 06:07] LABS: BASOPHILS % (AUTO) 0.8 % (0-1); EOSINOPHILS # (AUTO) 0.3 X10'3 (0-0.9); EOSINOPHILS % (AUTO) 4.9 % (0-6); HEMATOCRIT 35.5 % (35.0-45.0); HEMOGLOBIN 11.8 g/dl (12.0-16.0); LYMPHOCYTES # (AUTO) 2.2 X10'3 (1.1-4.8); LYMPHOCYTES % (AUTO) 41.9 % (21-51); MEAN CORPUSCULAR HEMOGLOBIN 30.4 PG (27.0-31.0); MEAN CORPUSCULAR HGB CONC 33.3 g/dL (33.0-36.5); MEAN CORPUSCULAR VOLUME 91.1 FL (78-98); MEAN PLATELET VOLUME 9.8 FL (7.4-10.4); MONOCYTES # (AUTO) 0.5 X10'3 (0-0.9); MONOCYTES % (AUTO) 9.3 % (2-12); NEUTROPHILS # (AUTO) 2.3 X10'3 (1.8-7.7); NEUTROPHILS % (AUTO) 43.1 % (42-75); PLATELET COUNT 194 X10'3 (140-440); RED CELL DISTRIBUTION WIDTH 12.5 % (11.5-14.5); WHITE BLOOD COUNT 5.3 X10'3 (4.5-11.0)
[2021-12-02 06:29] LABS: ALANINE AMINOTRANSFERASE 22 U/L (12-78); ALBUMIN 3.1 G/DL (3.4-5.0); ALKALINE PHOSPHATASE 41 IU/L (46-116); ANION GAP 10 (8-16); BILIRUBIN,TOTAL 0.3 MG/DL (0.1-1.0); BLOOD UREA NITROGEN 5 MG/DL (7-18); BUN/CREATININE RATIO 7.7 (6.6-38.0); CHLORIDE 107 MMOL/L (99-107); CREATININE 0.65 MG/DL (0.40-0.90); GLUCOSE 97 MG/DL (70-104); SODIUM 143 MMOL/L (135-145); TOTAL CARBON DIOXIDE 25.8 MMOL/L (24-32); TOTAL PROTEIN 6.1 G/DL (6.4-8.2); eGFR > 90 ML/MIN
[2021-12-02 06:43] LABS: ASPARTATE AMINO TRANSFERASE 21 U/L (10-37); PHOSPHORUS 3.2 MG/DL (2.3-4.5); POTASSIUM 3.9 MMOL/L (3.5-5.1)
[2021-12-02] MEDS: piperacillin/tazo 3.375gm/50ml 50 ML IV SCH ×2 (07:53→18:00)
[2021-12-02] MEDS: cyclobenzaprine 10mg tablet PO SCH ×3 (07:54→20:20)
[2021-12-02] MEDS: multivitamins, therapeutics tablet PO SCH (07:54)
[2021-12-02] MEDS: lactobacillus rhamnosus 10,000 MMU CELLS/CAPSULE PO SCH (07:54)
[2021-12-02] MEDS: pantoprazole 40mg Tablet.DR PO SCH (07:54)
[2021-12-02] MEDS: pregabalin 75mg capsule PO SCH ×3 (07:55→20:20)
[2021-12-02] MEDS: HYDROcodone/acetaminophen 10/325mg tab PO PRN ×4 (07:55→23:07)
[2021-12-02] MEDS: docusate sod 100mg capsule PO SCH ×2 (08:00→20:00)
[2021-12-02] MEDS: K and/or MAG REPLACEMENT MC SCH ×2 (08:00→19:57)
[2021-12-02] MEDS: ondansetron/PF 4mg/2ml inj IV PRN ×2 (10:10→15:42)
[2021-12-02] MEDS ORDERED: MIDAZolam 1 MG/ML 5ML VIAL ONE (15:11)
[2021-12-02] MEDS ORDERED: fentaNYL/PF 50MCG/1 ML 2ML syringe ONE (15:11)
[2021-12-02] MEDS ORDERED: ondansetron/PF 4mg/2ml inj ONE (15:41)
--- NOTE | 2021-12-02 16:13 | NUR ---
Patient not in her room, she was still in GI lab for colonoscopy
[2021-12-02] MEDS ORDERED: hyoscyamine 0.125mg TAB.SUBL SL PRN (17:15)
--- NOTE | 2021-12-02 18:30 | NUR ---
Patient in room [facility] 351. I have received report from JANICE Hopkins and had the opportunity to ask questions and assume patient care. Addendum: 12/02/21 at 2038 by Zeke Glez RN Amended: Links added.
--- NOTE | 2021-12-02 23:15 | NUR ---
natalieco given for pain Addendum: 12/02/21 at 2316 by Zeke Glez RN Amended: Links added.
[2021-12-03] VITALS: BP 118/76
[2021-12-03] MEDS: morphine 2 MG/ML inj. syringe IV PRN (04:42)
[2021-12-03] MEDS: ondansetron/PF 4mg/2ml inj IV PRN (04:44)
[2021-12-03 06:02] LABS: BASOPHILS % (AUTO) 0.9 % (0-1); EOSINOPHILS # (AUTO) 0.2 X10'3 (0-0.9); EOSINOPHILS % (AUTO) 3.8 % (0-6); HEMATOCRIT 34.5 % (35.0-45.0); HEMOGLOBIN 11.6 g/dl (12.0-16.0); LYMPHOCYTES # (AUTO) 1.4 X10'3 (1.1-4.8); LYMPHOCYTES % (AUTO) 28.5 % (21-51); MEAN CORPUSCULAR HEMOGLOBIN 30.5 PG (27.0-31.0); MEAN CORPUSCULAR HGB CONC 33.6 g/dL (33.0-36.5); MEAN CORPUSCULAR VOLUME 90.8 FL (78-98); MEAN PLATELET VOLUME 9.1 FL (7.4-10.4); MONOCYTES # (AUTO) 0.5 X10'3 (0-0.9); MONOCYTES % (AUTO) 9.3 % (2-12); NEUTROPHILS # (AUTO) 2.8 X10'3 (1.8-7.7); NEUTROPHILS % (AUTO) 57.5 % (42-75); PLATELET COUNT 185 X10'3 (140-440); RED CELL DISTRIBUTION WIDTH 12.7 % (11.5-14.5); WHITE BLOOD COUNT 4.9 X10'3 (4.5-11.0)
[2021-12-03 06:15] LABS: ALANINE AMINOTRANSFERASE 23 U/L (12-78); ALBUMIN 3.1 G/DL (3.4-5.0); ALBUMIN/GLOBULIN RATIO 1.1 (1.1-1.5); ALKALINE PHOSPHATASE 38 IU/L (46-116); ANION GAP 8 (8-16); ASPARTATE AMINO TRANSFERASE 15 U/L (10-37); BILIRUBIN,TOTAL 0.2 MG/DL (0.1-1.0); BLOOD UREA NITROGEN 4 MG/DL (7-18); BUN/CREATININE RATIO 5.5 (6.6-38.0); CALCIUM 7.7 MG/DL (8.5-10.1); CHLORIDE 106 MMOL/L (99-107); CREATININE 0.73 MG/DL (0.40-0.90); GLUCOSE 91 MG/DL (70-104); PHOSPHORUS 3.8 MG/DL (2.3-4.5); POTASSIUM 3.7 MMOL/L (3.5-5.1); SODIUM 142 MMOL/L (135-145); TOTAL CARBON DIOXIDE 27.8 MMOL/L (24-32); TOTAL PROTEIN 5.8 G/DL (6.4-8.2); eGFR 83 ML/MIN
--- NOTE | 2021-12-03 06:30 | NUR ---
Problems reprioritized. Patient report given, questions answered & plan of care reviewed with JANICE Tinajero. Addendum: 12/03/21 at 0630 by Zeke Glez RN Amended: Links added.
[2021-12-03 07:10] VITALS: BP 118/75
[2021-12-03] MEDS: pantoprazole 40mg Tablet.DR PO SCH (08:00)
[2021-12-03] MEDS: cyclobenzaprine 10mg tablet PO SCH (08:00)
[2021-12-03] MEDS: multivitamins, therapeutics tablet PO SCH (08:00)
[2021-12-03] MEDS: K and/or MAG REPLACEMENT MC SCH (08:00)
[2021-12-03] MEDS: pregabalin 75mg capsule PO SCH (08:00)
[2021-12-03] MEDS: docusate sod 100mg capsule PO SCH (08:00)
[2021-12-03] MEDS: lactobacillus rhamnosus 10,000 MMU CELLS/CAPSULE PO SCH (08:00)
[2021-12-03] MEDS: normal saline 1000ml 1,000 ML IV SCH (09:13)
--- NOTE | 2021-12-03 09:37 | NUR ---
PAGER ID: [phone] MESSAGE: [phone] Son Salgado: patient c/o nausea and vomiting. Zofran was not effective. thank you! cosme [phone]
[2021-12-03] MEDS ORDERED: metoclopramide 5 mg/ml inj IV ONE (09:40)
[2021-12-03 12:24] VITALS: BP 125/75
[2021-12-03] MEDS ORDERED: METR-159 PO (12:46)
[2021-12-03] MEDS ORDERED: CIPR-202 PO (12:46)
[2021-12-03] MEDS ORDERED: HYDR-3965 PO (12:46)
[2021-12-03] MEDS ORDERED: SENN-223 PO (12:46)
[2021-12-03] MEDS ORDERED: ONDA4TAB12 PO (13:16)
--- NOTE | 2021-12-03 13:42 | NUR ---
patient stable and appropriate for discharge home with her mother. iv removed, all belongings taken from room. new rx e-scripted to preferred pharmacy. all discharge instructions and education given and reviewed with patient, all questions answered.
== END 2021-12-03 13:25 | disposition home or self-care (01) | DRG 392 ==
LOC: ER 11:55 → ED HOLD 18:44 → SUR 3N 20:50
PROVIDERS: ADMIT Family Medicine; ATTEND Family Medicine
PROC: 0DBK8ZX Excision of Ascending Colon, Via Natural or Artificial Opening Endoscopic, Diagnostic (ICD-10-PCS; principal; 2021-12-02)
PROC: 0DBL8ZX Excision of Transverse Colon, Via Natural or Artificial Opening Endoscopic, Diagnostic (ICD-10-PCS; 2021-12-02)
PROC: 0DBN8ZX Excision of Sigmoid Colon, Via Natural or Artificial Opening Endoscopic, Diagnostic (ICD-10-PCS; 2021-12-02)
PROC: 0DBM8ZX Excision of Descending Colon, Via Natural or Artificial Opening Endoscopic, Diagnostic (ICD-10-PCS; 2021-12-02)
PROC: 0DBK8ZX Excision of Ascending Colon, Via Natural or Artificial Opening Endoscopic, Diagnostic (ICD-10-PCS; 2021-12-02)
PROC: 0DBN8ZX Excision of Sigmoid Colon, Via Natural or Artificial Opening Endoscopic, Diagnostic (ICD-10-PCS; 2021-12-02)
PROC: 0DBP8ZX Excision of Rectum, Via Natural or Artificial Opening Endoscopic, Diagnostic (ICD-10-PCS; 2021-12-02)
PROC: 0DBM8ZX Excision of Descending Colon, Via Natural or Artificial Opening Endoscopic, Diagnostic (ICD-10-PCS; 2021-12-02)
DX: K52.9 Noninfective gastroenteritis and colitis, unspecified (principal); K51.018 Ulcerative (chronic) pancolitis with other complication; K92.1 Melena; K21.9 Gastro-esophageal reflux disease without esophagitis; Z20.822 Contact with and (suspected) exposure to COVID-19; G89.4 Chronic pain syndrome; K64.8 Other hemorrhoids; M54.9 Dorsalgia, unspecified; Z87.891 Personal history of nicotine dependence; Z88.5 Allergy status to narcotic agent
CPT/HCPCS: 36415; 45380; 45385; 74176; 80053; 81001; 81025; 82272; 83605; 83690; 83735; 84100; 84145; 85025; 87040; 87045; 87046; 87081; 87324; 87449; 88305; 88313; 89055; 93005; 96361; 96365; 96375; 96376; 99152; 99153; 99285; A4620; C1773; G0378; J1200; J1644; J2250; J2270; J2405; J2543; J2765; J3010; J7030

== ENCOUNTER 2022-03-25 10:17 | Emergency (ER) | payer MEDICARE, MEDICAID ==
[~2022-03-25] VITALS: Ht 162.6 cm; Wt 79.5 kg
[~2022-03-25 10:17] MED LIST changes: -CIPR-202 PO; +CYCL5TAB PO; +MULT-1085 PO; +ONDA4TAB12 PO; +PANT-47 PO; -PANT40TA54 PO; +PREG150C46 PO; +SENN-223 PO
[2022-03-25 10:25] VITALS: BP 135/88
[2022-03-25 12:03] LABS: CLARITY,URINE CLEAR (Clear); COLOR,URINE YELLOW (Yellow); GLUCOSE, URINE NEGATIVE (Neg); KETONES,URINE NEGATIVE (Neg); LEUKOCYTE ESTERASE ,URINE SMALL (Neg); NITRITES, URINE NEGATIVE (Neg); OCCULT BLOOD,URINE NEGATIVE (Neg); PROTEIN,URINE NEGATIVE (Neg); UROBILINOGEN,URINE 0.2 E.U/dL (0.2-1.0)
[2022-03-25 12:10] LABS: UA COLLECTION TYPE CLN CATCH MIDSTREAM
[2022-03-25] MEDS ORDERED: fluconazole 150mg tablet PO ONE (12:15)
[2022-03-25] MEDS ORDERED: cephalexin 500mg capsule PO ONE (12:15)
[2022-03-25] MEDS ORDERED: CEPH-585 PO (12:18)
[2022-03-25 12:31] LABS: BACTERIA,URINE FEW /HPF (Neg); MUCUS STRANDS FEW /LPF (Neg); RBC,URINE NONE SEEN /HPF (0-2); SQUAMOUS EPITHELIAL CELL,UR MODERATE /LPF (FEW); WBC,URINE 0-4 /HPF (0-4)
== END 2022-03-25 12:30 | disposition home or self-care (01) ==
LOC: ER 10:19
DX: N39.0 Urinary tract infection, site not specified (principal); N89.8 Other specified noninflammatory disorders of vagina; G89.29 Other chronic pain; M54.50 Low back pain, unspecified; Z88.5 Allergy status to narcotic agent
CPT/HCPCS: 81001; 99283

== ENCOUNTER 2022-04-12 10:47 | Emergency (ER) | payer MEDICARE, MEDICAID ==
[~2022-04-12] VITALS: Ht 162.6 cm; Wt 77.0 kg
[~2022-04-12 10:47] MED LIST changes: +CEPH-585 PO
[2022-04-12 11:43] LABS: BASOPHILS # (AUTO) 0.1 X10'3 (0-0.2); EOSINOPHILS # (AUTO) 0.2 X10'3 (0-0.9); EOSINOPHILS % (AUTO) 2.7 % (0-6); HEMATOCRIT 38.5 % (35.0-45.0); HEMOGLOBIN 12.9 g/dl (12.0-16.0); LYMPHOCYTES % (AUTO) 33.8 % (21-51); MEAN CORPUSCULAR HEMOGLOBIN 30.4 PG (27.0-31.0); MEAN CORPUSCULAR HGB CONC 33.4 g/dL (33.0-36.5); MEAN CORPUSCULAR VOLUME 90.9 FL (78-98); MEAN PLATELET VOLUME 10.7 FL (7.4-10.4); MONOCYTES # (AUTO) 0.4 X10'3 (0-0.9); MONOCYTES % (AUTO) 7.1 % (2-12); NEUTROPHILS # (AUTO) 3.2 X10'3 (1.8-7.7); NEUTROPHILS % (AUTO) 55.4 % (42-75); PLATELET COUNT 159 X10'3 (140-440); RED BLOOD COUNT 4.23 X10'6 (4.20-5.60); RED CELL DISTRIBUTION WIDTH 14.1 % (11.5-14.5); WHITE BLOOD COUNT 5.8 X10'3 (4.5-11.0)
[2022-04-12 11:56] LABS: ALANINE AMINOTRANSFERASE 20 U/L (12-78); ALBUMIN 3.7 G/DL (3.4-5.0); ALBUMIN/GLOBULIN RATIO 1.2 (1.1-1.5); ALKALINE PHOSPHATASE 57 IU/L (46-116); ANION GAP 7 (8-16); ASPARTATE AMINO TRANSFERASE 11 U/L (10-37); BILIRUBIN,TOTAL 0.1 MG/DL (0.1-1.0); BLOOD UREA NITROGEN 6 MG/DL (7-18); BUN/CREATININE RATIO 8.1 (6.6-38.0); CALCIUM 8.3 MG/DL (8.5-10.1); CHLORIDE 109 MMOL/L (99-107); CREATININE 0.74 MG/DL (0.40-0.90); GLUCOSE 96 MG/DL (70-104); POTASSIUM 3.7 MMOL/L (3.5-5.1); SODIUM 143 MMOL/L (135-145); TOTAL CARBON DIOXIDE 26.8 MMOL/L (24-32); TOTAL PROTEIN 6.9 G/DL (6.4-8.2); eGFR 81 ML/MIN
[2022-04-12 12:10] VITALS: BP 114/77
[2022-04-12 12:12] LABS: CLARITY,URINE SLIGHTLY CLOUDY (Clear); COLOR,URINE YELLOW (Yellow); GLUCOSE, URINE NEGATIVE (Neg); KETONES,URINE NEGATIVE (Neg); LEUKOCYTE ESTERASE ,URINE SMALL (Neg); NITRITES, URINE NEGATIVE (Neg); OCCULT BLOOD,URINE TRACE-INTACT (Neg); PROTEIN,URINE NEGATIVE (Neg); UROBILINOGEN,URINE 0.2 E.U/dL (0.2-1.0)
[2022-04-12 12:17] LABS: UA COLLECTION TYPE CLN CATCH MIDSTREAM
[2022-04-12 12:18] LABS: SQUAMOUS EPITHELIAL CELL,UR MODERATE /LPF (FEW)
[2022-04-12 12:19] LABS: BACTERIA,URINE 2+ /HPF (Neg); RBC,URINE 0-2 /HPF (0-2)
--- NOTE | 2022-04-12 14:24 | NUR ---
AMBULATED WITH STEADY GAIT TO/FROM RESTROOM WITHOUT INCIDENT.
[2022-04-12] MEDS ORDERED: cephalexin 500mg capsule PO ONE (15:25)
[2022-04-12] MEDS ORDERED: phenazopyridine 100mg tablet PO ONE (15:25)
[2022-04-12] MEDS ORDERED: PHEN-786 PO (15:36)
[2022-04-12] MEDS ORDERED: CEPH-585 PO (15:36)
== END 2022-04-12 15:54 | disposition home or self-care (01) ==
LOC: ER 10:48
DX: N39.0 Urinary tract infection, site not specified (principal); M54.50 Low back pain, unspecified; G89.29 Other chronic pain; Z88.5 Allergy status to narcotic agent
CPT/HCPCS: 36415; 80053; 81001; 85025; 87077; 87088; 87186; 93005; 99284